=== PATIENT | male | born 1965 | race Caucasian/White ===

== ENCOUNTER 2021-09-12 16:41 | Inpatient (IN) | payer OTHER ==
[~2021-09-12 16:41] MED LIST: Iopamidol 300 61% 100 ML VIAL FS ONE
[2021-09-12 17:55] LABS: #Basophils 0.1 10x3/uL (0.0-0.2); #Eosinphils 0.5 10x3/uL (0.0-0.5); #Monocytes 0.8 10x3/uL (0.0-1.1); #Neutrophils 5.9 10x3/uL (1.5-8.4); %Basophils 0.8 % (0.0-2.0); %Eosinophils 5.3 % (0.0-6.0); %Lymphocytes 18.8 % (18.0-47.0); %Monocytes 8.4 % (0.0-10.0); Hemoglobin 14.8 g/dL (13.5-17.5); Mean Corpuscular HGB CONC 34.7 g/dL (32.0-36.0); Mean Corpuscular Hemoglobin 30.6 pg (27.0-33.0); Mean Corpuscular Volume 88.4 fl (81.2-95.1); Mean Platelet Volume 10.4 fl (7.4-10.4); Platelet Count 187 10x3/uL (150-450); RBC Distribution Width 12.3 % (11.5-14.5); Red Blood Cell (RBC) Count 4.83 10x6/uL (4.32-5.72)
[2021-09-12 18:07] LABS: ALT (SGPT) 35 U/L (8-55); AST (SGOT) 22 U/L (5-34); Albumin 4.3 g/dL (3.5-5.0); Alkaline Phosphatase 57 U/L (40-110); Anion Gap 13 mmol/L (10-20); BUN (Urea Nitrogen) 15 mg/dL (8.4-25.7); Bilirubin, Total 0.8 mg/dL (0.2-1.2); Calc. Creatinine Clearance 0 mL/min (70-130); Calcium 9.8 mg/dL (7.8-10.44); Carbon Dioxide 27 mmol/L (22-29); Chloride 104 mmol/L (98-107); Globulin 3.6 g/dL (2.4-3.5); Glucose 89 mg/dL (70-105); Lipase 48 U/L (8-78); Potassium 4.5 mmol/L (3.5-5.1); Protein, Total 7.9 g/dL (6.0-8.3); Sodium 139 mmol/L (136-145)
[2021-09-12 18:51] LABS: Bilirubin Neg (Negative); Blood, Urine Negative (Negative); Clarity Clear (Clear); Glucose, Urine (Dipstick) Normal (Negative); Ketone, Urine Negative (Negative); Leukocyte Negative (Negative); Nitrite Negative (Negative); Protein, Urine (Dipstick) Negative (Neg-Trace); Specific Gravity, Urine 1.015 (1.002-1.036); Urobilinogen Normal mg/dL (Less than 2)
[2021-09-12] MEDS ORDERED: Morphine 4 MG/ML VIAL ONE ×2 (19:22→22:01)
[2021-09-12] MEDS ORDERED: Piperacillin/Tazobactam 4.5 GM VIAL ONE (19:22)
[2021-09-12] MEDS ORDERED: Ondansetron PF 4 MG/2 ML Vial ONE ×2 (19:22→22:01)
[2021-09-12] MEDS ORDERED: Ondansetron PF 4 MG/2 ML Vial IVP PRN (19:34)
[2021-09-12] MEDS ORDERED: Morphine 4 MG/ML VIAL SLOW IVP PRN (19:36)
[2021-09-12] MEDS ORDERED: diphenhydrAMINE 50 MG/ML VIAL IVP PRN (19:37)
[2021-09-12 20:58] LABS: SARS-CoV-2 NAA Rapid Test Not Detected (NotDetected)
[2021-09-12] MEDS ORDERED: Morphine 2 MG/ML VIAL SLOW IVP PRN (22:11)
[2021-09-12] MEDS ORDERED: Famotidine/PF 20 mg/2ml Vial ONE (22:15)
[2021-09-12] MEDS ORDERED: Famotidine/PF 20 mg/2ml Vial SLOW IVP SCH (22:15)
[2021-09-12] MEDS: Sodium Chloride 0.9% 1,000 ML IV SCH (22:21)
[2021-09-12] MEDS ORDERED: Piperacillin/Tazobactam 3.375 GM in Sodium Chloride 0.9% 100 ML IVPB SCH (23:59)
[2021-09-13 03:52] LABS: #Basophils 0.1 10x3/uL (0.0-0.2); #Eosinphils 0.3 10x3/uL (0.0-0.5); #Monocytes 0.6 10x3/uL (0.0-1.1); #Neutrophils 6.6 10x3/uL (1.5-8.4); %Basophils 0.8 % (0.0-2.0); %Eosinophils 3.7 % (0.0-6.0); %Lymphocytes 16.3 % (18.0-47.0); %Monocytes 6.1 % (0.0-10.0); %Neutrophils 72.7 % (40.0-75.0); Hemoglobin 13.6 g/dL (13.5-17.5); Mean Corpuscular HGB CONC 34.6 g/dL (32.0-36.0); Mean Corpuscular Hemoglobin 30.3 pg (27.0-33.0); Mean Corpuscular Volume 87.5 fl (81.2-95.1); Mean Platelet Volume 10.2 fl (7.4-10.4); Platelet Count 185 10x3/uL (150-450); RBC Distribution Width 12.6 % (11.5-14.5); Red Blood Cell (RBC) Count 4.49 10x6/uL (4.32-5.72)
[2021-09-13] MEDS: Sodium Chloride 0.9% 1,000 ML IV SCH (06:20)
[2021-09-13 07:46] VITALS: BP 128/82; TEMP 97.8
[2021-09-13] MEDS ORDERED: Ondansetron PF 4 MG/2 ML Vial ONE ×2 (07:54→10:10)
[2021-09-13] MEDS ORDERED: Piperacillin/Tazobactam 3.375 GM VIAL ONE ×2 (07:54)
[2021-09-13] MEDS ORDERED: Morphine 2 MG/ML VIAL ONE (07:54)
[2021-09-13] MEDS ORDERED: Famotidine/PF 20 mg/2ml Vial SLOW IVP SCH (09:00)
[2021-09-13] MEDS ORDERED: Fentanyl 100 MCG/2 ML VIAL ONE ×2 (09:42→11:53)
[2021-09-13] MEDS ORDERED: Midazolam HCl 2 mg/2 ml Vial ONE (09:42)
[2021-09-13] MEDS ORDERED: PROPOFOL 20 ML ONE (09:42)
[2021-09-13] MEDS ORDERED: Lidocaine 2% PF 5 ML VIAL ONE (09:44)
[2021-09-13] MEDS ORDERED: Rocuronium Bromide 10 MG/ML (10ML VIAL) ONE (09:44)
[2021-09-13] MEDS ORDERED: Bupivacaine PF 0.5% 30 ML VIAL ONE (10:09)
[2021-09-13] MEDS ORDERED: EPINEPHrine 1 MG/ML AMP ONE (10:09)
[2021-09-13] MEDS ORDERED: Glycopyrrolate 0.2 MG/ML 5 ML SYRINGE ONE (10:10)
[2021-09-13] MEDS ORDERED: Dexamethasone 20 MG/5 ML VIAL ONE (10:10)
[2021-09-13] MEDS ORDERED: Succinylcholine 200 MG/10 ml SYRINGE FS ONE (10:11)
[2021-09-13] MEDS ORDERED: HYDROmorphone 0.5 MG/0.5 ML SYRINGE ONE (10:20)
[2021-09-13] MEDS ORDERED: SUGAMMADEX SODIUM 200 MG/2 ML VIAL ONE (10:20)
[2021-09-13] MEDS ORDERED: HYDROcodone/Acetaminophen 5/325 mg Tablet PO PRN ×2 (11:48)
[2021-09-13] MEDS ORDERED: Ketorolac Tromethamine 30 MG/ML VIAL ONE (11:53)
[2021-09-13] MEDS ORDERED: HYDROcodone/Acetaminophen 5/325 mg Tablet ONE (12:57)
== END 2021-09-13 13:35 | disposition home or self-care (01) | DRG 343 ==
LOC: CSHERS 16:41 → CSHERHOLD 21:31 → OBSVTOIN 21:32
PROVIDERS: ADMIT Family Medicine; ATTEND Family Medicine
PROC: 0DTJ4ZZ Resection of Appendix, Percutaneous Endoscopic Approach (ICD-10-PCS; principal; 2021-09-13)
PROC: 0WQF4ZZ Repair Abdominal Wall, Percutaneous Endoscopic Approach (ICD-10-PCS; 2021-09-13)
DX: K35.80 Unspecified acute appendicitis (principal); K42.9 Umbilical hernia without obstruction or gangrene; M62.08 Separation of muscle (nontraumatic), other site; Z20.822 Contact with and (suspected) exposure to COVID-19; Z72.89 Other problems related to lifestyle; Z79.899 Other long term (current) drug therapy; E66.9 Obesity, unspecified; Z68.33 Body mass index [BMI] 33.0-33.9, adult
CPT/HCPCS: 36415; 74177; 80053; 81003; 83690; 85025; 86850; 86900; 86901; 87086; 88304; A4649; C1713; J0171; J1100; J1170; J1885; J2001; J2250; J2270; J2405; J2543; J2704; J3010; J3490; J7050; Q9967; S0020; S0028; U0002

== ENCOUNTER 2021-09-22 12:00 | Inpatient (IN) | payer OTHER ==
[2021-09-22 12:52] LABS: #Basophils 0.1 10x3/uL (0.0-0.2); #Eosinphils 0.1 10x3/uL (0.0-0.5); #Monocytes 1.3 10x3/uL (0.0-1.1); #Neutrophils 14.6 10x3/uL (1.5-8.4); %Basophils 0.7 % (0.0-2.0); %Eosinophils 0.8 % (0.0-6.0); %Lymphocytes 5.9 % (18.0-47.0); %Monocytes 7.2 % (0.0-10.0); %Neutrophils 82.5 % (40.0-75.0); Hemoglobin 13.1 g/dL (13.5-17.5); Mean Corpuscular HGB CONC 34.3 g/dL (32.0-36.0); Mean Corpuscular Volume 87.4 fl (81.2-95.1); Mean Platelet Volume 9.7 fl (7.4-10.4); Platelet Count 350 10x3/uL (150-450); RBC Distribution Width 12.5 % (11.5-14.5); Red Blood Cell (RBC) Count 4.37 10x6/uL (4.32-5.72); White Blood Cell (WBC) Count 17.7 10x3/uL (3.5-10.5)
[2021-09-22] MEDS ORDERED: Morphine 4 MG/ML VIAL ONE ×2 (12:59→14:04)
[2021-09-22] MEDS ORDERED: Promethazine HCl 25 MG/ML VIAL ONE (12:59)
[2021-09-22 13:06] LABS: ALT (SGPT) 118 U/L (8-55); AST (SGOT) 53 U/L (5-34); Albumin 3.6 g/dL (3.5-5.0); Alkaline Phosphatase 320 U/L (40-110); Anion Gap 18 mmol/L (10-20); BUN (Urea Nitrogen) 15 mg/dL (8.4-25.7); Bilirubin, Total 1.2 mg/dL (0.2-1.2); Calc. Creatinine Clearance 0 mL/min (70-130); Calcium 8.6 mg/dL (7.8-10.44); Carbon Dioxide 23 mmol/L (22-29); Chloride 99 mmol/L (98-107); Globulin 3.7 g/dL (2.4-3.5); Glucose 115 mg/dL (70-105); Lipase 28 U/L (8-78); Potassium 4.1 mmol/L (3.5-5.1); Protein, Total 7.3 g/dL (6.0-8.3); Sodium 136 mmol/L (136-145)
[2021-09-22] MEDS ORDERED: Piperacillin/Tazobactam 4.5 GM VIAL ONE (13:52)
[2021-09-22] MEDS ORDERED: Ondansetron PF 4 MG/2 ML Vial ONE (15:09)
[2021-09-22 15:18] LABS: Bilirubin Neg (Negative); Blood, Urine 10 (Negative); Clarity Clear (Clear); Glucose, Urine (Dipstick) Normal (Negative); Ketone, Urine Negative (Negative); Leukocyte Negative (Negative); Nitrite Negative (Negative); Protein, Urine (Dipstick) 30 mg/dl (Neg-Trace); Specific Gravity, Urine 1.005 (1.002-1.036); Urobilinogen Normal mg/dL (Less than 2)
[2021-09-22 15:25] LABS: Bacteria/HPF None Seen HPF (None Seen); RBC/HPF None Seen HPF (0-3); Squamous Epithelial 0-3 HPF (0-3); WBC/HPF None Seen HPF (0-3)
[2021-09-22] MEDS ORDERED: HYDROmorphone 0.5 MG/0.5 ML SYRINGE ONE (15:46)
[2021-09-22] MEDS ORDERED: Acetaminophen 325 MG TAB ONE (18:16)
[2021-09-22 18:54] VITALS: BMI 33.5
[2021-09-22] MEDS ORDERED: Acetaminophen 325 MG TAB PO PRN (19:22)
[2021-09-22] MEDS ORDERED: Ondansetron ODT 4 MG TAB PO PRN (19:23)
[2021-09-22] MEDS ORDERED: Ondansetron PF 4 MG/2 ML Vial IVP PRN (19:23)
[2021-09-22] MEDS ORDERED: Sodium Chloride 0.9% 1,000 ML IV SCH (19:30)
[2021-09-22] MEDS ORDERED: Sodium Chloride 0.9% 1,000 ML ONE (20:08)
[2021-09-22] MEDS: Morphine 2 MG/ML VIAL SLOW IVP PRN ×2 (20:15→22:12)
[2021-09-22] MEDS: Sodium Chloride 0.9% 1,000 ML IV SCH (20:15)
[2021-09-22] MEDS: Piperacillin/Tazobactam 3.375 GM in Sodium Chloride 0.9% 100 ML IVPB SCH (20:24)
[2021-09-22] MEDS: Promethazine HCl 12.5 MG in Sodium Chloride 0.9% 50 ML IVPB PRN (22:08)
[2021-09-23] MEDS: Morphine 2 MG/ML VIAL SLOW IVP PRN ×5 (01:00→20:47)
[2021-09-23] MEDS: Ondansetron PF 4 MG/2 ML Vial IVP PRN ×3 (01:00→16:23)
[2021-09-23 03:05] LABS: SARS-CoV-2 NAA Rapid Test Not Detected (NotDetected)
[2021-09-23] MEDS: Sodium Chloride 0.9% 1,000 ML IV SCH ×2 (03:55→13:52)
[2021-09-23] MEDS: Piperacillin/Tazobactam 3.375 GM in Sodium Chloride 0.9% 100 ML IVPB SCH ×3 (03:57→20:48)
[2021-09-23 05:03] LABS: Platelet Count 324 10x3/uL (150-450)
[2021-09-23 05:10] LABS: INR-International Normal Ratio 1.1; PTT 29.3 sec (22.0-33.0); Prothrombin Time 11.4 sec (9.5-12.1)
[2021-09-23] MEDS ORDERED: Fentanyl 100 MCG/2 ML VIAL ONE (09:49)
[2021-09-23] MEDS ORDERED: Naloxone HCl 0.4 mg/ml Vial ONE (09:49)
[2021-09-23] MEDS ORDERED: Lidocaine 1% PF 5 ML VIAL ONE (09:50)
[2021-09-23] MEDS ORDERED: Midazolam HCl 5 mg/5 ml Vial ONE (09:50)
[2021-09-23] MEDS ORDERED: Sodium Bicarbonate 2.5 MEQ/5 ML VIAL ONE (09:50)
[2021-09-23] MEDS: Acetaminophen 325 MG TAB PO PRN ×2 (09:52→16:23)
[2021-09-23] MEDS: Promethazine HCl 12.5 MG in Sodium Chloride 0.9% 50 ML IVPB PRN (20:51)
[2021-09-23] MEDS: Hydrocortisone 1% Cream 30 GM TUBE TOP SCH (22:07)
[2021-09-24] MEDS: Morphine 2 MG/ML VIAL SLOW IVP PRN ×2 (00:01→18:50)
[2021-09-24] MEDS ORDERED: Piperacillin/Tazobactam 3.375 GM in Sodium Chloride 0.9% 100 ML IVPB SCH (02:19)
[2021-09-24 04:07] LABS: #Basophils 0.1 10x3/uL (0.0-0.2); #Eosinphils 0.7 10x3/uL (0.0-0.5); #Monocytes 0.9 10x3/uL (0.0-1.1); #Neutrophils 12.5 10x3/uL (1.5-8.4); %Basophils 0.5 % (0.0-2.0); %Lymphocytes 9.1 % (18.0-47.0); %Monocytes 5.5 % (0.0-10.0); Hemoglobin 11.5 g/dL (13.5-17.5); Mean Corpuscular HGB CONC 33.1 g/dL (32.0-36.0); Mean Corpuscular Hemoglobin 29.3 pg (27.0-33.0); Mean Corpuscular Volume 88.5 fl (81.2-95.1); Mean Platelet Volume 9.5 fl (7.4-10.4); Platelet Count 341 10x3/uL (150-450); Red Blood Cell (RBC) Count 3.92 10x6/uL (4.32-5.72); White Blood Cell (WBC) Count 16.4 10x3/uL (3.5-10.5)
[2021-09-24] MEDS: Morphine 4 MG/ML VIAL SLOW IVP PRN ×3 (04:07→22:31)
[2021-09-24] MEDS: Ondansetron PF 4 MG/2 ML Vial IVP PRN ×2 (04:07→12:57)
[2021-09-24] MEDS: Lactated Ringer's 1,000 ML IV SCH ×3 (04:11→22:30)
[2021-09-24 04:18] LABS: Anion Gap 14 mmol/L (10-20); BUN (Urea Nitrogen) 8 mg/dL (8.4-25.7); Calc. Creatinine Clearance 123 mL/min (70-130); Calcium 8.2 mg/dL (7.8-10.44); Carbon Dioxide 25 mmol/L (22-29); Chloride 104 mmol/L (98-107); Glucose 116 mg/dL (70-105); Potassium 3.4 mmol/L (3.5-5.1); Sodium 140 mmol/L (136-145)
[2021-09-24] MEDS: Piperacillin/Tazobactam 3.375 GM in Sodium Chloride 0.9% 100 ML IVPB SCH ×3 (04:27→20:14)
[2021-09-24 04:40] LABS: Prothrombin Time 11.1 sec (9.5-12.1)
[2021-09-24] MEDS: Acetaminophen 325 MG TAB PO PRN ×2 (06:04→18:40)
[2021-09-24] MEDS: Sodium Chloride 0.9% 1,000 ML IV SCH (06:17)
[2021-09-24] MEDS: Hydrocortisone 1% Cream 30 GM TUBE TOP SCH ×2 (10:28→23:15)
[2021-09-24] MEDS ORDERED: Simethicone Chewable 80 MG TAB PO PRN (21:55)
[2021-09-25] MEDS: Lactated Ringer's 1,000 ML IV SCH ×2 (02:20→11:17)
[2021-09-25] MEDS: Piperacillin/Tazobactam 3.375 GM in Sodium Chloride 0.9% 100 ML IVPB SCH ×2 (04:41→11:17)
[2021-09-25] MEDS: Morphine 2 MG/ML VIAL SLOW IVP PRN (05:49)
[2021-09-25] MEDS: Ondansetron PF 4 MG/2 ML Vial IVP PRN ×2 (08:22→15:42)
[2021-09-25] MEDS: Hydrocortisone 1% Cream 30 GM TUBE TOP SCH (08:22)
[2021-09-25] MEDS: Acetaminophen 325 MG TAB PO PRN (08:22)
[2021-09-25 12:27] LABS: #Basophils 0.1 10x3/uL (0.0-0.2); #Eosinphils 0.6 10x3/uL (0.0-0.5); #Monocytes 0.7 10x3/uL (0.0-1.1); #Neutrophils 8.9 10x3/uL (1.5-8.4); %Basophils 0.7 % (0.0-2.0); %Eosinophils 5.2 % (0.0-6.0); %Monocytes 5.6 % (0.0-10.0); %Neutrophils 72.8 % (40.0-75.0); Hemoglobin 11.3 g/dL (13.5-17.5); Mean Corpuscular HGB CONC 33.8 g/dL (32.0-36.0); Mean Corpuscular Hemoglobin 30.1 pg (27.0-33.0); Mean Corpuscular Volume 88.8 fl (81.2-95.1); Mean Platelet Volume 9.6 fl (7.4-10.4); Platelet Count 390 10x3/uL (150-450); Red Blood Cell (RBC) Count 3.76 10x6/uL (4.32-5.72); White Blood Cell (WBC) Count 12.2 10x3/uL (3.5-10.5)
[2021-09-25 15:13] LABS: #Basophils 0.1 10x3/uL (0.0-0.2); #Eosinphils 0.6 10x3/uL (0.0-0.5); #Monocytes 0.6 10x3/uL (0.0-1.1); #Neutrophils 8.2 10x3/uL (1.5-8.4); %Eosinophils 5.5 % (0.0-6.0); %Lymphocytes 11.6 % (18.0-47.0); %Monocytes 5.5 % (0.0-10.0); %Neutrophils 72.2 % (40.0-75.0); Hemoglobin 10.8 g/dL (13.5-17.5); Mean Corpuscular HGB CONC 33.9 g/dL (32.0-36.0); Mean Corpuscular Hemoglobin 29.9 pg (27.0-33.0); Mean Corpuscular Volume 88.4 fl (81.2-95.1); Mean Platelet Volume 9.8 fl (7.4-10.4); Platelet Count 399 10x3/uL (150-450); RBC Distribution Width 12.7 % (11.5-14.5); Red Blood Cell (RBC) Count 3.61 10x6/uL (4.32-5.72); White Blood Cell (WBC) Count 11.4 10x3/uL (3.5-10.5)
[2021-09-25 17:10] VITALS: BP 136/75; TEMP 97.5
== END 2021-09-25 17:45 | disposition home or self-care (01) | DRG 862 ==
LOC: CSHERS 12:00 → CSHTELE 18:36
PROVIDERS: ADMIT Surgery; ATTEND Surgery
PROC: 0W9G3ZZ Drainage of Peritoneal Cavity, Percutaneous Approach (ICD-10-PCS; principal; 2021-09-23)
DX: T81.43XA Infection following a procedure, organ and space surgical site, initial encounter (principal); K65.1 Peritoneal abscess; A41.51 Sepsis due to Escherichia coli [E. coli]; T81.44XA Sepsis following a procedure, initial encounter; Z20.822 Contact with and (suspected) exposure to COVID-19; E66.9 Obesity, unspecified; Z82.49 Family history of ischemic heart disease and other diseases of the circulatory system; Z80.9 Family history of malignant neoplasm, unspecified; Z68.33 Body mass index [BMI] 33.0-33.9, adult
CPT/HCPCS: 36415; 49020; 71045; 74176; 74177; 80048; 80053; 81003; 81015; 83605; 83690; 84484; 85025; 85049; 85610; 85730; 87040; 87070; 87077; 87186; 87205; 93005; J1170; J2250; J2270; J2310; J2405; J2543; J2550; J3010; J3490; J7050; J7120; Q9967; U0002